=== PATIENT | male | born 1965 | race Caucasian/White ===

== ENCOUNTER 2024-02-26 11:06 | Emergency (ER) | payer OTHER ==
[2024-02-26 11:21] VITALS: BMI 28.1
[2024-02-26 12:37] LABS: BASO % 0.3 % (0-2.0); EOS % 0.4 % (0-4.5); HEMATOCRIT 43.5 % (35.4-49); HEMOGLOBIN 14.6 GM/dL (11.7-16.9); LYMPH % 7.1 % (8-40); MCH 30.1 pg (25.7-33.7); MCHC 33.6 g/dl (32.0-35.9); MEAN CELL VOLUME 89.4 fl (80-96); MEAN PLT VOLUME 7.7 fl (7.5-11.1); MONO % 13.7 % (3.8-10.2); NEUT % 78.5 % (42.8-82.8); PLATELET COUNT 221 10^3/uL (134-434); RBC 4.86 M/mm3 (4.00-5.60); RDW 13.5 % (11.9-15.9); WHITE BLOOD COUNT 13.8 K/mm3 (4.0-10.0)
[2024-02-26 12:39] LABS: INR 1.17 (0.83-1.09); PROTHROMBIN TIME (PATIENT) 13.2 SEC (9.7-13.0)
[2024-02-26] MEDS: morphine CARPU-JECT 4 MG/1 ML DISP.SYRIN IVPUSH ONE ×2 (12:40→13:53)
[2024-02-26] MEDS ORDERED: morphine SULFATE 4 MG/ML VIAL ONE ×2 (12:40→13:50)
[2024-02-26 12:57] LABS: POTASSIUM 3.7 mmol/L (3.5-5.1)
[2024-02-26 13:01] LABS: ALBUMIN 3.8 g/dl (3.4-5.0); CALCIUM 8.7 mg/dL (8.5-10.1)
[2024-02-26 13:06] LABS: BILIRUBIN,TOTAL 1.3 mg/dL (0.2-1); TOT PROT 7.2 g/dl (6.4-8.2)
[2024-02-26] MEDS ORDERED: ONDANSETRON 4 MG/2 ML VIAL ONE (13:42)
[2024-02-26] MEDS: ONDANSETRON 4 MG/2 ML VIAL IVPUSH ONE (13:43)
[2024-02-26] MEDS ORDERED: FENTANYL CITRATE/PF 50 MCG/ML VIAL ONE (13:54)
[2024-02-26] MEDS: SODIUM CHLORIDE 0.9% 500 ML INFUS.BAG IV ONE (14:26)
[2024-02-26 15:53] LABS: BASO % 0.2 % (0-2.0); HEMATOCRIT 39.5 % (35.4-49); HEMOGLOBIN 13.2 GM/dL (11.7-16.9); MCH 29.8 pg (25.7-33.7); MCHC 33.3 g/dl (32.0-35.9); MEAN CELL VOLUME 89.5 fl (80-96); MEAN PLT VOLUME 7.9 fl (7.5-11.1); MONO % 13.7 % (3.8-10.2); NEUT % 81.1 % (42.8-82.8); PLATELET COUNT 198 10^3/uL (134-434); RBC 4.41 M/mm3 (4.00-5.60); RDW 13.5 % (11.9-15.9); WHITE BLOOD COUNT 11.4 K/mm3 (4.0-10.0)
[2024-02-26] MEDS ORDERED: DIPHTH,PERTUSS(ACELL),TET 0.5 ML DISP.SYRIN IM ONE (16:15)
[2024-02-26] MEDS: DIPHTH,PERTUSS(ACELL),TET 0.5 ML DISP.SYRIN IM ONE (16:18)
[2024-02-26 16:44] VITALS: BP 95/53; PULSE 68; RESP 16; TEMP 100.6
== END 2024-02-26 15:20 | disposition short-term general hospital (02) ==
LOC: JER 11:06 → JERFT 11:06 → JER 15:20
PROC: 0HQ1XZZ Repair Face Skin, External Approach (ICD-10-PCS; principal; 2024-02-26)
PROC: 3E033NZ Introduction of Analgesics, Hypnotics, Sedatives into Peripheral Vein, Percutaneous Approach (ICD-10-PCS; 2024-02-26)
PROC: 3E033NZ Introduction of Analgesics, Hypnotics, Sedatives into Peripheral Vein, Percutaneous Approach (ICD-10-PCS; 2024-02-26)
PROC: 3E033GC Introduction of Other Therapeutic Substance into Peripheral Vein, Percutaneous Approach (ICD-10-PCS; 2024-02-26)
PROC: 3E0234Z Introduction of Serum, Toxoid and Vaccine into Muscle, Percutaneous Approach (ICD-10-PCS; 2024-02-26)
DX: S22.20XA Unspecified fracture of sternum, initial encounter for closed fracture (principal); S01.81XA Laceration without foreign body of other part of head, initial encounter; S70.11XA Contusion of right thigh, initial encounter; S50.811A Abrasion of right forearm, initial encounter; U07.1 COVID-19; W11.XXXA Fall on and from ladder, initial encounter; Z23 Encounter for immunization
CPT/HCPCS: 0241U-QW; 36415; 70450-TC; 71045-TC-FY; 71260-TC; 72125-TC; 72128-TC; 72131-TC; 72170-TC-FY; 73552-TC-RT-FY; 73700-TC-RT; 74177-TC; 80053; 80307; 82550; 82553; 84484; 85025; 85610; 86850; 86900; 86901; 90715; 93005; 93010; 99285-25; Q9967